=== PATIENT | male | born 1995 | race African-American/Black ===

== ENCOUNTER 2017-12-20 09:44 | Emergency (ER) | payer MEDICAID ==
[~2017-12-20] VITALS: Ht 182.9 cm; Wt 62.1 kg
[2017-12-20 09:50] VITALS: Ht 182.9 cm; Wt 62.1 kg
[2017-12-20 10:21] VITALS: BP 138/83
== END 2017-12-20 10:21 | disposition home or self-care (01) ==
LOC: ED 09:44
DX: S80.872A Other superficial bite, left lower leg, initial encounter (principal); W54.0XXA Bitten by dog, initial encounter; Y93.89 Activity, other specified; Y92.89 Other specified places as the place of occurrence of the external cause; Y99.8 Other external cause status